=== PATIENT | female | born 1935 | race Caucasian/White ===

== ENCOUNTER 2016-11-28 14:14 | Emergency (ER) | payer MEDICARE, OTHER ==
[2016-11-28 16:19] VITALS: BP 102/53
--- NOTE | 2016-11-28 16:34 | UC ---
Complaint Female HPI - HPI Summary HPI Summary: patient is followed by [facility] urology in [place]. She has been treated for 3 UTI' s over the last 5 weeks, She was told by the weapons engineer to come in to be straight cath'd for a clean catch. She is having buring with urination, abdominal fullness and pressure, denies fever, back pain. - History Of Current Complaint Chief Complaint: UCGI Stated Complaint: URINARY COMPLAINT Time Seen by Provider: 11/28/16 16:18 Hx Obtained From: Patient ?: No Onset/Duration: Sudden Onset, Lasting Days Timing: Constant Severity Initially: Mild Severity Currently: Moderate Character: Dull, Burning, Cramping Aggravating Factor(s): Urination Alleviating Factor(s): Nothing - Risk Factors Ectopic Risk Factor: Negative - Allergies/Home Medications Allergies/Adverse Reactions: Allergies Allergy/AdvReac Type Severity Reaction Status Date / Time Celecoxib [From Celebrex] Allergy Swelling Verified 11/28/16 16:21 Diazepam [From Valium] Allergy See Comment Verified 11/28/16 16:21 Naproxen Allergy Swelling Verified 11/28/16 16:21 PMH/Surg Hx/FS Hx/Imm Hx Previously Healthy: Yes Endocrine History Of: Reports: Thyroid Disease Denies: Diabetes Cardiovascular History Of: Reports: Cardiac Disorders - CHF, AFIB W/ ABLATION, PACEMAKER Denies: Hypertension, Congestive Heart Failure GI/ History Of: Denies: Renal Disease - Surgical History Surgical History: Yes Surgery Procedure, Year, and Place: neck fusion. lumbar. hysterectony. appendectomy. ABLATION AND PACEMAKER. 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 ARTERY - Family History Known Family History: Positive: Other - allergies, celiacs - Social History Alcohol Use: None Substance Use Type: None Smoking Status (MU): Never Smoked Tobacco Review of Systems Constitutional: Negative Skin: Negative Eyes: Negative ENT: Negative Respiratory: Negative Cardiovascular: Negative Gastrointestinal: Abdominal Pain Genitourinary: Dysuria, Frequency, Urgency Motor: Negative Neurovascular: Negative Musculoskeletal: Negative Neurological: Negative Psychological: Negative All Other Systems Reviewed And Are Negative: Yes Physical Exam Triage Information Reviewed: Yes Appearance: Well-Nourished, Ill-Appearing, Pain Distress Vital Signs: Initial Vital Signs Pulse 62 11/28/16 16:05 Resp 12 11/28/16 16:05 BP 102/53 11/28/16 16:05 Pulse Ox 100 11/28/16 16:05 Vital Signs Reviewed: Yes Eye Exam: Normal Eyes: Positive: Conjunctiva Clear ENT Exam: Normal ENT: Positive: Normal ENT inspection, Hearing grossly normal, Pharynx normal, TMs normal Dental Exam: Normal Neck exam: Normal Neck: Positive: Supple, Nontender, No Lymphadenopathy Respiratory Exam: Normal Respiratory: Positive: Chest non-tender, Lungs clear, Normal breath sounds Cardiovascular Exam: Normal Cardiovascular: Positive: RRR, No Murmur, Pulses Normal Abdominal Exam: Normal - neg CVA tenderness, lower abdominal distension Bowel Sounds: Positive: Present Musculoskeletal Exam: Normal Musculoskeletal: Positive: Strength Intact, ROM Intact, No Edema Neurological Exam: Normal Neurological: Positive: Alert, Muscle Tone Normal Psychological Exam: Normal Skin Exam: Normal Complaint Female Dx - Course Course Of Treatment: hx obtained, exam performed, meds reviewed, clean catch obtained, started keflex - Differential Dx/Diagnosis Differential Diagnosis/HQI/PQRI: Sexually Transmitted Disease, Ureteral Stone, Urinary Tract Infection Provider Diagnoses: dysuria. lower abdominal pain Discharge - Discharge Plan Condition: Stable Disposition: HOME Patient Education Materials: Dysuria (ED) Additional Instructions: Take the medication as prescribed. Your culture should be available on wednesday. Follow up immediately if you develop any increased back pain, fever. Follow up with Dr Arita at the beginning of next week.
== END 2016-11-28 16:53 | disposition home or self-care (01) ==
LOC: UCCORT 14:14
DX: R30.0 Dysuria (principal); R10.30 Lower abdominal pain, unspecified; Z87.440 Personal history of urinary (tract) infections; Z88.6 Allergy status to analgesic agent; Z88.8 Allergy status to other drugs, medicaments and biological substances; I50.9 Heart failure, unspecified; I48.91 Unspecified atrial fibrillation; Z95.0 Presence of cardiac pacemaker; Z95.5 Presence of coronary angioplasty implant and graft
CPT/HCPCS: 51701; 87077; 87086; 87186; 99212; G0463